=== PATIENT | female | born 1945 | race Caucasian/White ===

== ENCOUNTER 2019-07-14 10:51 | Outpatient (CLI) | payer MEDICARE, SELFPAY ==
[2019-07-14 11:41] LABS: Basophils % 0.6 %; Eosinophils # 0.1 10^3/uL (0.0-0.8); Eosinophils % 2.5 %; Hematocrit 44.4 % (37.0-47.0); Hemoglobin 13.9 g/dL (11.5-15.3); Lymphocytes # 1.2 10^3/uL (0.8-4.8); Lymphocytes % 23.5 %; Mean Corpuscular HGB Conc 31.3 g/dL (30.0-36.0); Mean Corpuscular Hemoglobin 29.4 pg (28.0-34.0); Mean Corpuscular Volume 94.1 fL (81-99); Mean Platelet Volume 10.2 fL (7.4-10.4); Monocytes # 0.5 10^3/uL (0.2-0.9); Monocytes % 9.9 %; Neutrophils # 3.3 10^3/uL (1.8-7.7); Neutrophils % 63.1 %; Nucleated Red Blood Cells % 0 %; Platelet Count 197 10^3/cmm (130-400); Red Blood Count 4.72 10^6/uL (4.1-5.3); Red Cell Distribution Width 13.9 % (12.1-15.1); White Blood Count 5.2 10^3/uL (4.0-10.0)
[2019-07-14 12:50] LABS: Alanine Aminotransferase 13 U/L (0-33); Albumin Level 3.8 g/dL (3.5-5.2); Alkaline Phosphatase 83 IU/L (35-105); Aspartate Amino Transferase 19 U/L (0-32); Blood Urea Nitrogen 15 mg/dL (8-23); Calcium 9.9 mg/dL (8.5-10.5); Carbon Dioxide 28 mmol/L (22-29); Chloride 102 mmol/L (98-107); Globulin 3.3 g/dL (1.3-4.6); Glucose 107 mg/dL (65-115); Sodium 141 mmol/L (136-145); Total Bilirubin 0.6 mg/dL (0.15-1.2); Total Protein 7.1 g/dL (6.6-8.7)
--- NOTE | 2019-07-15 16:12 | ONC FU_ITS ---
Dr. Sharma Patient Follow-Up Note Patient: Lorrie Villarreal Unit #: [id number]: 1945 Dicatated By: Jason Sharma M.D.Date of Visit:Jul 14, 2019 Onc Med Follow-up/Prog Note Chief Complaint: Breast cancer. 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 She had presented in October 2014 with an abnormal screening mammogram. The findings included a new spiculated appearing mass in the superior middle third of the left breast. It measured 9 mm. Also noted in the left anterior third breast were new asymmetric calcifications. Additional studies were recommended. She then had further evaluation through [facility] in [place]. This led to needle biopsies of 2 lesions in the left breast, both at the 2:30 position. Two biopsies at 2:30-6 showed high-grade ductal carcinoma in situ, cribriform growth pattern, with central comedo-type necrosis. A third biopsy at 2:30-9 showed micropapillary type invasive carcinoma which was ER positive at 90% and NC positive at 60%. Ki-67 was positive in 25% of cells. It was negative for overexpression of HER-2/rere with amplification ratio of 0.8 and mean HER2 signal 3.4. She had had a second opinion evaluation at the [facility]. She opted to proceed with mastectomy/reconstruction. On 01/11/2015 she underwent left total mastectomy, sentinel left axillary lymph node biopsy, and axillary lymph node dissection. That procedure was followed by placement of a tissue human services professional. Pathology on the mastectomy showed grade 3 micropapillary invasive carcinoma measuring 10 mm. The closest margin was 5 mm. Also present was an area of ductal carcinoma in situ, nuclear grade 3, solid and comedo types. The greatest extent of DCIS was at least 17 mm. The closest margin was 5 mm. There was involvement in 1 of 2 sentinel left axillary lymph nodes, with the maximum dimension of metastatic focus measuring 7 mm. The axillary lymph node dissection showed involvement in an additional 1 of 31 lymph nodes, maximum dimension 7 mm. I had seen her initially on 02/02/2015 for consideration of systemic adjuvant therapy. We discussed the available options including chemotherapy and hormonal therapy. I did opt to have her evaluated with Oncotype DX. It showed a recurrence score of 21, which was in the low intermediate risk category with estimated 5 year recurrence risk of 13% in patients who received adjuvant therapy with tamoxifen alone. In that group, there was no improvement with addition of chemotherapy, but those results were based on relatively small number of patients, and a benefit with chemotherapy was not excluded. As such, we did opt to proceed with adjuvant chemotherapy with 4 cycles of Taxotere/cyclophosphamide. She completed adjuvant chemotherapy on 05/07/2015. Adjuvant hormonal therapy with anatrozole 1 mg daily began in May 2015. In July 2015 she underwent reconstructive surgery at the [facility]. She had no complications with the procedure. A surveillance right breast ultrasound on 10/15/2016 showed a 1.1 x 0.7 x 0.7 cm complex irregular mass located in the 9 to 10:00 position, approximately 2 cm from the nipple. It was read as BI-RADS 4, suspicious. Biopsy was recommended. I had seen her for followup on 11/11/2016. She then underwent ultrasound directed needle biopsy of the suspicious area. Pathology showed fibrocystic changes with no malignant tumor or significant atypia identified. Her other medical illnesses have been limited to hiatal hernia/GERD and some mild degenerative arthritis. She smoked for a period of 3 or 4 years, up to 2 packs of cigarettes daily. She quit smoking in 1962. She does not drink alcohol. Baseline DEXA scan on 11/06/2014 was normal, and repeat DEXA scan on 11/10/2016 showed normal bone mineralization. INTERIM HISTORY: Her surveillance right digital mammogram on 10/22/2017 showed persistent lesion at the 2:00 position, 2 cm from the nipple. It was noted to have decreased slightly in size. Six-month interval follow-up was recommended. Her repeat diagnostic mammogram/ultrasound on 04/29/2018 was BI-RADS category 2, benign. One-year follow-up was recommended. She has continued adjuvant hormonal therapy with anastrozole. She is seen for a scheduled visit. She has been feeling good generally, though she typically is not as active during the winter. Her ECOG score is 0. She has good appetite. She has no fever, night sweats, or hot flashes. She had developed some muscle soreness in the left side of her back, which she had attributed to the implant. It lasted for 3 to 4 weeks. It has now resolved. She also noticed a little soreness in her throat, which she also thought was a muscle issue, and that has also resolved. She has no shortness of breath, cough, or chest pain. She recurrently has no GI complaints. Her reflux symptoms have improved with dietary measures. She has no complaints. She does have some arthritis, mainly in the right hip. She has some numbness/tingling in her hands and feet. Medications: Anastrozole 1 (1 mg) Tablet Oral daily, Biotin 1 Tablet Oral daily, [facility] Melatonin 1 (5 mg) Capsule Oral at bedtime PRN, EQ Ibuprofen 1 (200 mg) Tablet Oral PRN, 1 Tablet Oral daily, reishi 1 Capsule daily Allergies: Penicillin V Potassium Review of Systems: Constitutional - Her energy has been good, though she does tend to be less active during the winter. She has good appetite. She has no fever, night sweats, or hot flashes. ECOG score is 0, ENMT - She has had a runny nose with some postnasal drip for the last couple of days. No mouth sores. No sore throat or difficulty swallowing, Hematologic/Lymphatic - She bruises easily, Respiratory - No shortness of breath. No cough. No pleuritic pain or hemoptysis, Cardiovascular - No angina pain. No palpitations, Gastrointestinal - No nausea or vomiting. No heartburn or acid reflux. No diarrhea or constipation. No blood in the stool or black stools, Genitourinary (F) - No dysuria or hematuria. No urinary frequency. No urgency or incontinence, Musculoskeletal - She had some soreness in the left side of her back for 3 to 4 weeks. She associated with her implant. It has resolved. She otherwise just has minor arthritis in her right hip, Integumentary - No skin complications, Neurologic - No headache or dizziness. She has numbness and tingling in her hands and feet, Psychiatric - No anxiety or depression. She is still having some trouble sleeping at night, but it is getting better. Vital Signs: Performed on Jul 14, 2019 12:31 Height - 64.00 in Weight - 202.4 lbs (HIGH) BSA - 1.97 sq.m BMI - 34.74 (HIGH) Temperature - 98.0 F (LOW) Pulse - 89 /min Respiration - 20 /min BP - 123/75 mm(hg) O2 Sat - 97 % Pain - 0 Physical Examination: Constitutional - She looks good generally, Eyes - Sclerae nonicteric. Conjunctivae clear, ENMT - No lesions noted in the oral cavity, Hematologic/Lymphatic - No cervical or clavicular adenopathy, Respiratory - Lungs are clear with good air movement bilaterally, Cardiovascular - Heart rhythm is regular. There is a II/ systolic murmur at the base. There is no gallop or rub noted, Breasts - The right breast shows no mass. There are no lesions noted in the left chest wall/reconstruction. There is no axillary adenopathy, Abdomen - Soft. Liver and spleen are not enlarged. There is no abdominal mass or ascites noted and there is no inguinal adenopathy, Extremities - No edema. Pedal pulses are palpable bilaterally, Neurologic - No focal neurologic deficits noted. Lab/Imaging: Test performed on Jul 14, 2019 11:00 Sodium 141 mmol/L Potassium 4.0 mmol/L Chloride 102 mmol/L CO2 28 mmol/L Anion Gap 15.0 BUN 15 mg/dL Creatinine 0.8 mg/dL Cr Clearance (Est) 85.5900 mL/min Glucose 107 mg/dL Calcium 9.9 mg/dL Protein, Total 7.1 g/dL Albumin 3.8 g/dL Globulin 3.3 g/dL Bilirubin, Total 0.6 mg/dL ALT (SGPT) 13 U/L AST (SGOT) 19 U/L Alkaline Phosphatase 83 IU/L WBC 5.2 10 3/uL RBC 4.72 10 6/uL HGB 13.9 g/dL HCT 44.4 % MCV 94.1 fL MCH 29.4 pg MCHC 31.3 g/dL RDW 13.9 % Platelet Count 197 10 3/cmm MPV 10.2 fL Neutrophils 3.3 10 3/uL Lymphocytes 1.2 10 3/uL Monocytes 0.5 10 3/uL Eosinophils 0.1 10 3/uL Basophils 0.0 10 3/uL Neutrophil % 63.1 % Lymphocyte % 23.5 % Monocyte % 9.9 % Eosinophil % 2.5 % Basophils % 0.6 % Impression: 1. 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 Pathology also showed ductal carcinoma in situ of the left breast. She has had additional evaluation with Oncotype DX, which showed a recurrence score of 21, low intermediate risk range. 2. Her treatment has included left total mastectomy, sentinel left axillary lymph node biopsy, left axillary lymph node dissection, and placement of tissue human services professional on 01/11/2015. 3. She was given adjuvant chemotherapy with 4 cycles of Taxotere/cyclophosphamide, completed in April 2015. Toxicities included fatigue, myelosuppression, and mild neuropathy. Overall, she tolerated chemotherapy pretty well. 4. In May 2015 she started adjuvant hormonal therapy with anastrozole 1 mg daily. Her other medical illnesses include: 5. Hiatal hernia/GERD. 6. Mild degenerative arthritis. An ultrasound of the right breast in September 2016 showed a suspicious nodule in the 9 to 10:00 position. Ultrasound directed biopsy on 11/28/2016 showed fibrocystic changes with no malignant tumor or significant atypia identified. She has continued adjuvant hormonal therapy with anastrozole. Her repeat diagnostic mammogram/ultrasound in April 2018 was BI-RADS category 2, benign. One-year follow-up was recommended. During followup she has been doing well clinically. She has tolerated the anastrozole with no adverse effects. Thus far there has been no evidence of recurrence of her breast cancer. Plan: She continues adjuvant hormonal therapy with anastrozole 1 mg daily. I will just plan to see her again in 1 year. Signed By: Jason Sharma M.D. <<Signature on File>>
== END 2019-07-14 10:52 | disposition home or self-care (01) ==
LOC: ONCMED 10:53
PROVIDERS: Family Provider Family Medicine; PCP Family Medicine; Visit Provider Internal Medicine Medical Oncology
DX: C50.412 Malignant neoplasm of upper-outer quadrant of left female breast (principal); C77.3 Secondary and unspecified malignant neoplasm of axilla and upper limb lymph nodes; Z17.0 Estrogen receptor positive status [ER+]; K44.9 Diaphragmatic hernia without obstruction or gangrene; K21.9 Gastro-esophageal reflux disease without esophagitis; M19.90 Unspecified osteoarthritis, unspecified site; Z79.811 Long term (current) use of aromatase inhibitors; Z92.21 Personal history of antineoplastic chemotherapy; Z87.891 Personal history of nicotine dependence; Z90.12 Acquired absence of left breast and nipple
CPT/HCPCS: 80053; 85025; 99214

== ENCOUNTER 2019-09-19 13:23 | Outpatient (CLI) | payer MEDICARE, SELFPAY ==
--- NOTE | 2019-09-19 13:39 | XR_ITS ---
WS: [id number] CHEST 2 VIEWS HISTORY: history of breast cancer COMPARISON: 02/19/2015 Lungs: Clear with no abnormality. No pleural effusion or pneumothorax. Cardiac size: Normal. Mediastinum/Aorta: Mild atherosclerosis aorta. Mild ectasia aorta. Bones: Slight increase in thoracic kyphosis. Prior LEFT axillary vinayak dissection. XR/XR chest 2V* [id number] IMPRESSION: 1. Mild chronic emphysema with no pneumonia. 2. Mild atherosclerosis aorta and prior LEFT axillary vinayak dissection.
--- NOTE | 2019-09-19 13:39 | XR_ITS ---
WS: [id number] THORACIC SPINE TECHNIQUE: AP and lateral views are performed. HISTORY: back pain COMPARISON: None available. Moderate increase in thoracic kyphosis. Endplate osteophytes and mild disc space narrowing throughout the thoracic spine. No fractures. There is very slight lucency and increase in size of the RIGHT T10 pedicle. With history of breast cancer further imaging should be obtained. Calcification in the thoracic aorta. XR/XR thoracic spine 2V [id number] IMPRESSION: 1. Increase in thoracic kyphosis with multilevel moderate spondylosis. 2. Lucency and slight increase in size of the RIGHT T10 pedicle. Metastatic di sease needs to be excluded. Recommend MRI with contrast for further evaluation. If patient is unable to undergo an MRI noncontrast CT evaluation would BE help ful. 3. Atherosclerosis aorta.
== END 2019-09-19 13:24 | disposition home or self-care (01) ==
PROVIDERS: Family Provider Family Medicine; PCP Family Medicine; Visit Provider Family Medicine
DX: M54.9 Dorsalgia, unspecified (principal); Z85.3 Personal history of malignant neoplasm of breast; M47.894 Other spondylosis, thoracic region; I70.0 Atherosclerosis of aorta; J43.9 Emphysema, unspecified
CPT/HCPCS: 71046; 72070

== ENCOUNTER 2019-10-03 09:16 | Outpatient (CLI) | payer MEDICARE, SELFPAY ==
--- NOTE | 2019-10-03 09:30 | MR_ITS ---
WS: [id number] MRI THORACIC SPINE WITH CONTRAST TECHNIQUE: Sagittal T1, T2 and STIR imaging. Axial T2 imaging. Post gadolinium imaging was obtained. CLINICAL INFORMATION: lesion T10 pedicle COMPARISON: Radiograph September 19, 2019 FINDINGS: No evidence of thoracic metastatic disease. Mild thoracic kyphosis. No acute compression fractures. M oderate spondylitic changes. No lesions in the T10 vertebral body. Cord signal is normal. No high-gra de central canal stenosis. No abnormal gadolinium enhancement. A few small disc protrusions more prominent at T7-T8 and T8-9 with slight effacement of ventral theca l sac. Small central protrusion at T10-11. Broad-based central disc protrusion T12-L1 with mild centr al canal stenosis. Moderate facet arthropathy. T2 hyperintense left thyroid lesion measuring 7 mm. Normal caliber thoracic aorta. Moderate esophagea l hiatal hernia. Adrenal glands appear normal. Exophytic left renal lesion measuring 12 mm with susce ptibility artifact likely represents hemorrhagic cyst. MR/MR thoracic spine wo/w [id number] IMPRESSION: 1. Moderate thoracic kyphosis. No acute compression fractures. 2. No evidence of metastatic disease. T10 vertebral body appears normal. 3. Cord signal is normal. 4. A few small disc protrusions more prominent at T12-L1 with mild central can al stenosis.
== END 2019-10-03 09:17 | disposition home or self-care (01) ==
PROVIDERS: PCP Family Medicine; Visit Provider Family Medicine
DX: S24.113A Complete lesion at T7-T10 level of thoracic spinal cord, initial encounter (principal); X58.XXXA Exposure to other specified factors, initial encounter; M40.294 Other kyphosis, thoracic region; M51.25 Other intervertebral disc displacement, thoracolumbar region; M48.04 Spinal stenosis, thoracic region
CPT/HCPCS: 72157; A9579

== ENCOUNTER 2020-05-07 10:37 | Outpatient (CLI) | payer MEDICARE, SELFPAY ==
--- NOTE | 2020-05-07 10:46 | MM_ITS ---
WS: [id number] RIGHT DIGITAL MAMMOGRAPHY WITH CAD CLINICAL INFORMATION: HX OF BREAST CA. PAIN AND SORENESS RIGHT BREAST. RIGHT BREAST REDUCTION. LEFT B REAST MASTECTOMY COMPARISON: TECHNIQUE: 3 views of the right breast were obtained. FINDINGS: Scattered fibroglandular densities of the right breast. Dystrophic calcifications right breast. Biops y markers upper outer right breast. No suspicious focal mass, asymmetry, calcifications, or architectural distortion. No evidence of grace gnancy. MM/[place] [id number] IMPRESSION: BI-RADS: 2-Benign FOLLOW UP: 1 Year Follow-up Recommend return to annual diagnostic mammography.
== END 2020-05-07 10:38 | disposition home or self-care (01) ==
PROVIDERS: PCP Family Medicine; Visit Provider Internal Medicine Medical Oncology
DX: Z85.3 Personal history of malignant neoplasm of breast (principal); N64.4 Mastodynia; Z90.12 Acquired absence of left breast and nipple
CPT/HCPCS: 77065

== ENCOUNTER 2020-08-13 14:00 | Outpatient (CLI) | payer MEDICARE, SELFPAY ==
[2020-08-13 14:37] LABS: Basophils % 0.8 %; Eosinophils # 0.1 10^3/uL (0.0-0.8); Eosinophils % 1.5 %; Hematocrit 45.4 % (37.0-47.0); Hemoglobin 14.6 g/dL (11.5-15.3); Lymphocytes # 1.7 10^3/uL (0.8-4.8); Mean Corpuscular HGB Conc 32.2 g/dL (30.0-36.0); Mean Corpuscular Volume 93.2 fL (81-99); Mean Platelet Volume 10.7 fL (7.4-10.4); Monocytes # 0.6 10^3/uL (0.2-0.9); Monocytes % 11.8 %; Neutrophils # 2.86 10^3/uL (1.8-7.7); Neutrophils % 53.7 %; Nucleated Red Blood Cells % 0 %; Platelet Count 215 10^3/cmm (130-400); Red Blood Count 4.87 10^6/uL (4.1-5.3); Red Cell Distribution Width 13.8 % (12.1-15.1); White Blood Count 5.3 10^3/uL (4.0-10.0)
[2020-08-13 15:19] LABS: Alanine Aminotransferase 13 U/L (0-33); Albumin Level 4.1 g/dL (3.5-5.2); Alkaline Phosphatase 87 IU/L (35-105); Aspartate Amino Transferase 19 U/L (0-32); Blood Urea Nitrogen 13 mg/dL (8-23); Calcium 9.6 mg/dL (8.5-10.5); Carbon Dioxide 29 mmol/L (22-29); Chloride 101 mmol/L (98-107); Globulin 2.7 g/dL (1.3-4.6); Glucose 83 mg/dL (65-115); Osmolality Calculated 293 mOsm/kg (285-295); Sodium 142 mmol/L (136-145); Total Bilirubin 0.3 mg/dL (0.15-1.2); Total Protein 6.8 g/dL (6.6-8.7)
--- NOTE | 2020-08-14 08:38 | ONC FU_ITS ---
Dr. Sharma Patient Follow-Up Note Patient: Lorrie Villarreal Unit #: [id number]: 1945 Dicatated By: Jason Sharma M.D.Date of Visit:Aug 13, 2020 Onc Med Follow-up/Prog Note Chief Complaint: Breast cancer. 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 She had presented in October 2014 with an abnormal screening mammogram. The findings included a new spiculated appearing mass in the superior middle third of the left breast. It measured 9 mm. Also noted in the left anterior third breast were new asymmetric calcifications. Additional studies were recommended. She then had further evaluation through [facility] in [place]. This led to needle biopsies of 2 lesions in the left breast, both at the 2:30 position. Two biopsies at 2:30-6 showed high-grade ductal carcinoma in situ, cribriform growth pattern, with central comedo-type necrosis. A third biopsy at 2:30-9 showed micropapillary type invasive carcinoma which was ER positive at 90% and IA positive at 60%. Ki-67 was positive in 25% of cells. It was negative for overexpression of HER-2/rere with amplification ratio of 0.8 and mean HER2 signal 3.4. She had had a second opinion evaluation at the [facility]. She opted to proceed with mastectomy/reconstruction. On 01/11/2015 she underwent left total mastectomy, sentinel left axillary lymph node biopsy, and axillary lymph node dissection. That procedure was followed by placement of a tissue senior it architect. Pathology on the mastectomy showed grade 3 micropapillary invasive carcinoma measuring 10 mm. The closest margin was 5 mm. Also present was an area of ductal carcinoma in situ, nuclear grade 3, solid and comedo types. The greatest extent of DCIS was at least 17 mm. The closest margin was 5 mm. There was involvement in 1 of 2 sentinel left axillary lymph nodes, with the maximum dimension of metastatic focus measuring 7 mm. The axillary lymph node dissection showed involvement in an additional 1 of 31 lymph nodes, maximum dimension 7 mm. I had seen her initially on 02/02/2015 for consideration of systemic adjuvant therapy. We discussed the available options including chemotherapy and hormonal therapy. I did opt to have her evaluated with Oncotype DX. It showed a recurrence score of 21, which was in the low intermediate risk category with estimated 5 year recurrence risk of 13% in patients who received adjuvant therapy with tamoxifen alone. In that group, there was no improvement with addition of chemotherapy, but those results were based on relatively small number of patients, and a benefit with chemotherapy was not excluded. As such, we did opt to proceed with adjuvant chemotherapy with 4 cycles of Taxotere/cyclophosphamide. She completed adjuvant chemotherapy on 05/07/2015. Adjuvant hormonal therapy with anatrozole 1 mg daily began in May 2015. In July 2015 she underwent reconstructive surgery at the [facility]. She had no complications with the procedure. A surveillance right breast ultrasound on 10/15/2016 showed a 1.1 x 0.7 x 0.7 cm complex irregular mass located in the 9 to 10:00 position, approximately 2 cm from the nipple. It was read as BI-RADS 4, suspicious. Biopsy was recommended. I had seen her for followup on 11/11/2016. She then underwent ultrasound directed needle biopsy of the suspicious area. Pathology showed fibrocystic changes with no malignant tumor or significant atypia identified. She continued her adjuvant hormonal therapy with anastrozole 1 mg daily. Her other medical illnesses have been limited to hiatal hernia/GERD and some mild degenerative arthritis. She smoked for a period of 3 or 4 years, up to 2 packs of cigarettes daily. She quit smoking in 1961. She does not drink alcohol. Baseline DEXA scan on 11/06/2014 was normal, and repeat DEXA scan on 11/10/2016 showed normal bone mineralization. Her repeat DEXA scan on 11/22/2018 continued to show normal bone mineralization with T score 1.9 in the lumbar spine, 1.1 in the left femoral neck, and 1.4 in the right femoral neck. INTERIM HISTORY: She is seen for a scheduled visit. She has been feeling pretty good generally. For about 6 weeks she had been having persistent pain in her left shoulder blade area. In September she had a evaluation with x-rays of the thoracic spine and subsequently thoracic spine MRI. There was no evidence of metastatic disease. The pain had subsequently resolved. Her energy has been pretty good, though she has noticed that she is slowing down somewhat. Her ECOG score is 1. She has good appetite and she has gained weight. She does not have fever, night sweats, or hot flashes. She has a little soreness in her mouth associated with her dentures. She is a little bit of cough in the morning. She does not complain of shortness of breath or chest pain. She has problems with gas in her upper stomach. She has no other GI or complaints. She has some mild joint pain, attributable to age. She does not complain of headache or dizziness. 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 Medications: Anastrozole 1 (1 mg) Tablet Oral daily, Biotin 1 Tablet Oral daily, [facility] Melatonin 1 (5 mg) Capsule Oral at bedtime PRN, EQ Ibuprofen 1 (200 mg) Tablet Oral PRN, 1 Tablet Oral daily, reishi 1 Capsule daily Allergies: Penicillin V Potassium Vital Signs: Performed on Aug 13, 2020 15:35 Height - 64.00 in Weight - 203.0 lbs (HIGH) BSA - 1.97 sq.m BMI - 34.85 (HIGH) Temperature - 98.2 F (LOW) Pulse - 63 /min Respiration - 19 /min BP - 127/74 mm(hg) O2 Sat - 95 % (LOW) Pain - 0 Physical Examination: Constitutional - She looks good generally, Eyes - Sclerae nonicteric. Conjunctivae clear, ENMT - No lesions noted in the oral cavity, Hematologic/Lymphatic - No cervical or clavicular adenopathy, Respiratory - Lungs are clear with good air movement bilaterally, Cardiovascular - Heart rhythm is regular. There is a II/ systolic murmur at the base. There is no gallop or rub noted, Breasts - The right breast shows no mass. There are no lesions noted in the left chest wall/reconstruction. There is no axillary adenopathy, Abdomen - Soft. Liver and spleen are not enlarged. There is no abdominal mass or ascites noted and there is no inguinal adenopathy, Extremities - No edema, Neurologic - No focal neurologic deficits noted. Lab/Imaging: Test performed on Aug 13, 2020 14:10 Sodium 142 mmol/L Potassium 4.0 mmol/L Chloride 101 mmol/L CO2 29 mmol/L Anion Gap 16.0 BUN 13 mg/dL Creatinine 0.8 mg/dL Cr Clearance (Est) 84.2600 mL/min Glucose 83 mg/dL Osmolality - Calculated 293 mOsm/kg Calcium 9.6 mg/dL Protein, Total 6.8 g/dL Albumin 4.1 g/dL Globulin 2.7 g/dL Bilirubin, Total 0.3 mg/dL ALT (SGPT) 13 U/L AST (SGOT) 19 U/L Alkaline Phosphatase 87 IU/L WBC 5.3 10 3/uL RBC 4.87 10 6/uL HGB 14.6 g/dL HCT 45.4 % MCV 93.2 fL MCH 30.0 pg MCHC 32.2 g/dL RDW 13.8 % Platelet Count 215 10 3/cmm MPV 10.7 fL Neutrophils 2.86 10 3/uL Lymphocytes 1.7 10 3/uL Monocytes 0.6 10 3/uL Eosinophils 0.1 10 3/uL Basophils 0.0 10 3/uL Neutrophil % 53.7 % Lymphocyte % 32.0 % Monocyte % 11.8 % Eosinophil % 1.5 % Basophils % 0.8 % NRBC % 0 % Problem List: 1. Grade 3 invasive micropapillary carcinoma of the left breast, stage IIA (T1b, pN1a, M0), ER/IA positive and HER-2/rere negative. Pathology also showed ductal carcinoma in situ of the left breast. She has had additional evaluation with Oncotype DX, which showed a recurrence score of 21, low intermediate risk range. 2. Hiatal hernia/GERD. 3. Mild degenerative arthritis. Problems Addressed with this Encounter and Plan: 1. 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 Pathology also showed ductal carcinoma in situ of the left breast. She has had additional evaluation with Oncotype DX, which showed a recurrence score of 21, low intermediate risk range. Her treatment has included left total mastectomy, sentinel left axillary lymph node biopsy, left axillary lymph node dissection, and placement of tissue senior it architect on 01/11/2015. She was given adjuvant chemotherapy with 4 cycles of Taxotere/cyclophosphamide, completed in April 2015. She began adjuvant hormonal therapy with anastrozole 1 mg daily in May 2015. An ultrasound of the right breast in September 2016 showed a suspicious nodule in the 9 to 10:00 position. Ultrasound directed biopsy on 11/28/2016 showed fibrocystic changes with no malignant tumor or significant atypia identified. She continued adjuvant hormonal therapy with anastrozole. During followup she has tolerated the anastrozole with no adverse effects. Overall she has been doing very well clinically with no evidence of recurrence of her breast cancer. She has now completed 5 years of adjuvant hormonal therapy. We discussed the possibility of stopping treatment now versus continuing for 10 years. With axillary lymph node involvement, she is at higher risk for recurrence, and as long as she is able to tolerate it with no significant adverse effects, I am recommending that she continue treatment with anastrozole 1 mg daily. I will just plan to see her again in one year. 2. She has had normal bone mineral density by DEXA scan. Due to her treatment with an aromatase inhibitor, she is at increased risk for osteoporosis, and she will require ongoing monitoring. She will be due for her 2-year interval DEXA scan in November, and that will be scheduled now. Signed By: Jason Sharma M.D. <<Signature on File>>
== END 2020-08-13 14:01 | disposition home or self-care (01) ==
LOC: ONCMED 14:05
PROVIDERS: PCP Family Medicine; Visit Provider Internal Medicine Medical Oncology
DX: C50.812 Malignant neoplasm of overlapping sites of left female breast (principal); C77.3 Secondary and unspecified malignant neoplasm of axilla and upper limb lymph nodes; Z17.0 Estrogen receptor positive status [ER+]; Z90.12 Acquired absence of left breast and nipple; Z79.811 Long term (current) use of aromatase inhibitors
CPT/HCPCS: 80053; 85025; 99214

== ENCOUNTER 2020-12-27 14:49 | Outpatient (CLI) | payer MEDICARE, SELFPAY ==
--- NOTE | 2020-12-27 | XR_ITS ---
WS: [id number] DEXA (DUAL ENERGY X-RAY ABSORPTIOMETRY) Bone mineral density was performed using a Walk-in Appointment Scheduler machine. HISTORY: HISTORY OF HIGH RISK MEDICATION USE FOR OSTEOPOROSIS COMPARISON: 11/22/2018 Lumbar spine BMD (L1-L4): 1.400 g/cm2 T score: 1.8 Z score: 2.9 Total hip BMD: Left: 1.136 g/cm2. T score: 1.0 Z score: 2.4 Right: 1.154 g/cm2. T score: 1.2 Z score: 2.5 10 year probability of a major osteoporotic fracture is 7%. Compared to the prior study from 11/22/2018. Lumbar spine bone mineral density has decreased by 0.7%. Bilateral hips bone mineral density has decreased by 1.7%. XR/XR DEXA axial skeleton* [id number] IMPRESSION: NORMAL BONE MINERAL DENSITY based upon the WHO classification for females. No s ignificant change in bone mineral density since the prior exam.
== END 2020-12-27 14:50 | disposition home or self-care (01) ==
PROVIDERS: PCP Family Medicine; Visit Provider Internal Medicine Medical Oncology
DX: Z78.0 Asymptomatic menopausal state (principal); Z79.899 Other long term (current) drug therapy
CPT/HCPCS: 77080

== ENCOUNTER 2021-04-24 11:08 | Outpatient (CLI) | payer MEDICARE, SELFPAY ==
--- NOTE | 2021-04-24 11:19 | MM_ITS ---
WS: [id number] RIGHT DIGITAL MAMMOGRAPHY WITH CAD CLINICAL INFORMATION: HX OF BREAST CA;LT MASTECTOMY HISTORY: COMPARISON: May 07, 2020 TECHNIQUE: 3 views of the right breast were obtained. FINDINGS: History of right breast reduction Scattered fibroglandular densities of the right breast. Stable dystrophic calcifications upper outer right breast. No suspicious focal mass, asymmetry, calcifications, or architectural distortion. No evidence of grace gnancy. MM/[place] [id number] IMPRESSION: BI-RADS: 2-Benign FOLLOW UP: 1 Year Follow-up Recommend return to annual diagnostic mammography.
== END 2021-04-24 11:09 | disposition home or self-care (01) ==
LOC: RADSHAW 11:13
PROVIDERS: PCP Family Medicine; Visit Provider Internal Medicine Medical Oncology
DX: Z85.3 Personal history of malignant neoplasm of breast (principal); Z90.12 Acquired absence of left breast and nipple
CPT/HCPCS: 77065

== ENCOUNTER 2021-08-13 14:20 | Outpatient (CLI) | payer MEDICARE, SELFPAY ==
--- NOTE | 2021-08-14 06:48 | ONC FU_ITS ---
Dr. Sharma Patient Follow-Up Note Patient: Lorrie Villarreal Unit #: [id number]: 1945 Dicatated By: Jason Sharma M.D.Date of Visit:Aug 13, 2021 Onc Med Follow-up/Prog Note Chief Complaint: Breast cancer. 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 She had presented in October 2014 with an abnormal screening mammogram. The findings included a new spiculated appearing mass in the superior middle third of the left breast. It measured 9 mm. Also noted in the left anterior third breast were new asymmetric calcifications. Additional studies were recommended. She then had further evaluation through [facility] in [place]. This led to needle biopsies of 2 lesions in the left breast, both at the 2:30 position. Two biopsies at 2:30-6 showed high-grade ductal carcinoma in situ, cribriform growth pattern, with central comedo-type necrosis. A third biopsy at 2:30-9 showed micropapillary type invasive carcinoma which was ER positive at 90% and MT positive at 60%. Ki-67 was positive in 25% of cells. It was negative for overexpression of HER-2/rere with amplification ratio of 0.8 and mean HER2 signal 3.4. She had had a second opinion evaluation at the [facility]. She opted to proceed with mastectomy/reconstruction. On 01/11/2015 she underwent left total mastectomy, sentinel left axillary lymph node biopsy, and axillary lymph node dissection. That procedure was followed by placement of a tissue post production assistant. Pathology on the mastectomy showed grade 3 micropapillary invasive carcinoma measuring 10 mm. The closest margin was 5 mm. Also present was an area of ductal carcinoma in situ, nuclear grade 3, solid and comedo types. The greatest extent of DCIS was at least 17 mm. The closest margin was 5 mm. There was involvement in 1 of 2 sentinel left axillary lymph nodes, with the maximum dimension of metastatic focus measuring 7 mm. The axillary lymph node dissection showed involvement in an additional 1 of 31 lymph nodes, maximum dimension 7 mm. I had seen her initially on 02/02/2015 for consideration of systemic adjuvant therapy. We discussed the available options including chemotherapy and hormonal therapy. I did opt to have her evaluated with Oncotype DX. It showed a recurrence score of 21, which was in the low intermediate risk category with estimated 5 year recurrence risk of 13% in patients who received adjuvant therapy with tamoxifen alone. In that group, there was no improvement with addition of chemotherapy, but those results were based on relatively small number of patients, and a benefit with chemotherapy was not excluded. As such, we did opt to proceed with adjuvant chemotherapy with 4 cycles of Taxotere/cyclophosphamide. She completed adjuvant chemotherapy on 05/07/2015. Adjuvant hormonal therapy with anatrozole 1 mg daily began in May 2015. In July 2015 she underwent reconstructive surgery at the [facility]. She had no complications with the procedure. A surveillance right breast ultrasound on 10/15/2016 showed a 1.1 x 0.7 x 0.7 cm complex irregular mass located in the 9 to 10:00 position, approximately 2 cm from the nipple. It was read as BI-RADS 4, suspicious. Biopsy was recommended. I had seen her for followup on 11/11/2016. She then underwent ultrasound directed needle biopsy of the suspicious area. Pathology showed fibrocystic changes with no malignant tumor or significant atypia identified. She continued her adjuvant hormonal therapy with anastrozole 1 mg daily. As of her follow-up visit in July 2020 she stopped the anastrozole, having completed 5 years of adjuvant therapy. Her other medical illnesses have been limited to hiatal hernia/GERD and some mild degenerative arthritis. She smoked for a period of 3 or 4 years, up to 2 packs of cigarettes daily. She quit smoking in 1961. She does not drink alcohol. Baseline DEXA scan on 11/06/2014 was normal, and repeat DEXA scan on 11/10/2016 showed normal bone mineralization. Her repeat DEXA scan on 11/22/2018 continued to show normal bone mineralization with T score 1.9 in the lumbar spine, 1.1 in the left femoral neck, and 1.4 in the right femoral neck. She is seen for a follow-up visit. She says she had COVID-19 virus infection last year, and she was pretty sick for at least a month. She had a weight loss of 14 pounds with that illness, but she did have a good recovery. She does not have quite as much energy as she used to, but she still has normal activity. ECOG score is 0. Her appetite is good. She has regained most of the weight. She does not have fever, night sweats, or hot flashes. She has not had sore mouth or throat. She does not complain of cough, and she has not been having shortness of breath or chest pain. She has some acid reflux, but that has been going on for years. She has chronic constipation, also unchanged. She has no complaints. She has no significant joint or bone pain. She does not complain of headache. She has very occasional episodes of dizziness. 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 Medications: Anastrozole 1 (1 mg) Tablet Oral daily, Biotin 1 Tablet Oral daily, [facility] Melatonin 1 (5 mg) Capsule Oral at bedtime PRN, EQ Ibuprofen 1 (200 mg) Tablet Oral PRN, 1 Tablet Oral daily, reishi 1 Capsule daily Allergies: Penicillin V Potassium Vital Signs: Performed on Aug 13, 2021 14:45 Height - 64.00 in Weight - 199.2 lbs (LOW) BSA - 1.95 sq.m BMI - 34.19 (HIGH) Temperature - 98.3 F (LOW) Pulse - 93 /min Respiration - 19 /min BP - 153/84 mm(hg) (HIGH) O2 Sat - 97 % Pain - 0 Fatigue - 0 Physical Examination: Constitutional - She looks good generally, Eyes - Sclerae nonicteric. Conjunctivae clear, ENMT - No lesions noted in the oral cavity, Hematologic/Lymphatic - No cervical or clavicular adenopathy, Respiratory - Lungs are clear with good air movement bilaterally, Cardiovascular - Heart rhythm is regular. There is a II/ systolic murmur at the base. There is no gallop or rub noted, Breasts - The right breast shows no mass. There are no lesions noted in the left chest wall/reconstruction. There is no axillary adenopathy, Abdomen - Soft. Liver and spleen are not enlarged. There is no abdominal mass or ascites noted and there is no inguinal adenopathy, Extremities - No edema, Neurologic - No focal neurologic deficits noted. Problem List: 1. Grade 3 invasive micropapillary carcinoma of the left breast, stage IIA (T1b, pN1a, M0), ER/MT positive and HER-2/rere negative. Pathology also showed ductal carcinoma in situ of the left breast. She has had additional evaluation with Oncotype DX, which showed a recurrence score of 21, low intermediate risk range. 2. Hiatal hernia/GERD. 3. Mild degenerative arthritis. Problems Addressed with this Encounter and Plan: 1. 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 Pathology also showed ductal carcinoma in situ of the left breast. She has had additional evaluation with Oncotype DX, which showed a recurrence score of 21, low intermediate risk range. Her treatment has included left total mastectomy, sentinel left axillary lymph node biopsy, left axillary lymph node dissection, and placement of tissue post production assistant on 01/11/2015. She was given adjuvant chemotherapy with 4 cycles of Taxotere/cyclophosphamide, completed in April 2015. She began adjuvant hormonal therapy with anastrozole 1 mg daily in May 2015. An ultrasound of the right breast in September 2016 showed a suspicious nodule in the 9 to 10:00 position. Ultrasound directed biopsy on 11/28/2016 showed fibrocystic changes with no malignant tumor or significant atypia identified. She continued adjuvant hormonal therapy with anastrozole. During followup she had tolerated the anastrozole with no adverse effects. She stopped it following her visit in July 2020, having completed 5 years of adjuvant therapy. Since then she has been doing well clinically, other than having had COVID-19 virus infection last year. Thus far there has been no evidence of recurrence of the breast cancer. She continues on expectant management. She is aware that she should continue surveillance with yearly diagnostic mammogram of the right breast. She will continue her regular follow-up with Dr. Casiano. I will see her again only as needed. Signed By: Jason Sharma M.D. <<Signature on File>>
== END 2021-08-13 14:21 | disposition home or self-care (01) ==
LOC: ONCMED 14:24
PROVIDERS: PCP Family Medicine; Visit Provider Internal Medicine Medical Oncology
DX: Z08 Encounter for follow-up examination after completed treatment for malignant neoplasm (principal); Z85.3 Personal history of malignant neoplasm of breast; K44.9 Diaphragmatic hernia without obstruction or gangrene; K21.9 Gastro-esophageal reflux disease without esophagitis; M19.90 Unspecified osteoarthritis, unspecified site; Z92.21 Personal history of antineoplastic chemotherapy
CPT/HCPCS: G0463

== ENCOUNTER → 2021-09-09 09:43 | Outpatient (BNVA) | payer MEDICARE, SELFPAY | PROVIDERS: PCP Family Medicine; Visit Provider Family Medicine | DX: Z00.00 Encounter for general adult medical examination without abnormal findings (principal); Z85.3 Personal history of malignant neoplasm of breast | CPT/HCPCS: 80053; 85025 ==

== ENCOUNTER → 2022-03-28 12:18 | Outpatient (BNVA) | payer MEDICARE, SELFPAY | PROVIDERS: PCP Family Medicine; Visit Provider Registered Nurse Neonatal Intensive Care | DX: N39.0 Urinary tract infection, site not specified (principal) | CPT/HCPCS: 81000; 87086 ==

== ENCOUNTER 2022-05-20 13:31 | Outpatient (CLI) | payer MEDICARE, SELFPAY ==
--- NOTE | 2022-05-20 13:41 | MM_ITS ---
WS: [id number] RIGHT 3D TOMOSYNTHESIS DIGITAL MAMMOGRAPHY WITH CAD CLINICAL INFORMATION: HX OF BREAST CA;LT MST HISTORY: LEFT mastectomy and RIGHT breast reduction. Tenderness RIGHT breast COMPARISON: 04/24/21 TECHNIQUE: 3 views of the right breast were obtained. FINDINGS: Scattered fibroglandular densities of the right breast. Biopsy marker RIGHT breast. Stable dystrophic calcifications outer RIGHT breast. No suspicious focal mass, asymmetry, calcifications, or architectural distortion. No evidence of grace gnancy. MM/[place] [id number] IMPRESSION: BI-RADS: 2-Benign FOLLOW UP: 1 Year Follow-up Recommend return to annual diagnostic mammography.
== END 2022-05-20 13:32 | disposition home or self-care (01) ==
LOC: RAD 13:34
PROVIDERS: PCP Family Medicine; Visit Provider Family Medicine
DX: Z85.3 Personal history of malignant neoplasm of breast (principal); Z90.12 Acquired absence of left breast and nipple
CPT/HCPCS: 77061; G0279

== ENCOUNTER 2022-07-30 15:22 | Emergency (ER) | payer MEDICARE, SELFPAY ==
[2022-07-30 15:28] VITALS: BP 156/95; PULSE 79; RESP 18; TEMP 36.8; O2SAT 98; BMI 30.4
[2022-07-30 15:32] VITALS: BP 135/77; RESP 16; O2SAT 97
--- NOTE | 2022-07-30 15:34 | ED_ITS ---
HPI - Skin/Abscess/Foreign Bdy General: Chief complaint: Skin/Abscess/Foreign Body Stated complaint: left leg abnormality Time Seen by Provider: 07/30/22 15:26 Source: patient Mode of arrival: ambulatory History of Present Illness: 77-year-old female who presents to the emergency room with complaints of a mildly tender red area in the medial aspect of the left lower leg. She is no trauma. She has not had any chest pain or shortness of breath that is tender to touch no other areas of concern. No chest pain no shortness of breath Onset (ago): hour(s) Location: LLE Severity: mild Quality: sharp Pain Consistency: intermittent Relieving factors: none Exacerbating factors: none Associated symptoms: Deny arthralgias, chills, cough, fever(s), itching, myalgias, nausea, rigidity, short of breath or vomiting Review of Systems Const: Denies: fever(s) or chills ENMT: Reports: throat pain, ear or mastoid pain, nasal discharge and nasal congestion Card: Denies: chest pain, palpitations, irregular heart rhythm, edema, swelling of feet/ankles, dyspnea on exertion or orthopnea Resp: Denies: dyspnea, productive cough or non-productive cough GI: Denies: nausea or vomiting Skin/Breast: Denies: rash or pruritus PFSH ED PFSH: Medical History History of breast cancer Social History Smoking and tobacco status: current every day smoker Alcohol intake: never Physical Exam Const: COMMON NORMALS: no acute distress GENERAL APPEARANCE: cooperative and comfortable ORIENTATION/CONSCIOUSNESS: Yes awake, Yes oriented to person, Yes oriented to place and Yes oriented to time HENMT: COMMON NORMALS: normocephalic, atraumatic and hearing grossly normal bilaterally HEAD & SCALP: normocephalic and atraumatic Resp: COMMON NORMALS: normal respiratory effort, No retractions, No use of accessory muscles and clear to auscultation bilaterally AUSCULTATION: clear to auscultation bilaterally Cardio: COMMON NORMALS: regular rate, regular rhythm and No murmurs present (Cardio) RATE: regular rate RHYTHM: regular rhythm Extremity: OTHER: Slightly reddened area tender to the touch medial aspect of the left lower leg. No induration no lymphatic streaking consistent with superficial thrombophlebitis Neuro: SENSORIUM/ORIENTATION: Yes oriented to person, Yes oriented to place and Yes oriented to time Skin: COMMON NORMALS: no rashes or lesions noted GENERAL SKIN EXAM: no rashes or lesions noted Course Vital Signs: Vital signs: Vital Signs Temperature 98.2 F 07/30/22 15:28 Pulse Rate 79 07/30/22 15:28 Respiratory Rate 16 07/30/22 15:32 Blood Pressure 135/77 07/30/22 15:32 Pulse Oximetry 97 07/30/22 15:32 Oxygen Delivery Me thod 07/30/22 15:32 MDM - Skin/Abscess/Foreign Bdy Medicial Decision Making Superficial thrombophlebitis. Anti-inflammatories moist heat elevate follow-up with primary care if not improving Discharge Plan Discharge Patient Disposition: Home Clinical Impression: Superficial thrombophlebitis of left leg Condition: Stable Prescriptions: New diclofenac sodium 75 mg tablet,delayed release (DR/EC) 75 mg PO Q12H PRN (Reason: pain) Qty: 20 0RF No Action biotin 5,000 mcg tablet,disintegrating 10,000 mcg PO DAILY prenat.vits,lory,kmo-[id number]-lbchp Tablet 1 tab PO DAILY sulfamethoxazole-trimethoprim [Bactrim DS] 800-160 mg tablet 1 tab PO BID 5 Days Qty: 10 0RF Discharge Orders: Discharge ED (Routine); Ordered 07/30/22 Ordered By: Hugo Colon Referrals: Alba Casiano MD [Primary Care Provider] - Discharge Diet: Usual diet Discharge Activity: Increase activity as tolerated Patient Instructions: Superficial Thrombophlebitis (ED), Opioid Safety, Pain Management Activity Restrictions/Additional Instructions: You were seen today in the emergency room with superficial thrombophlebitis. Recommend you elevate leg is much as possible apply moist heat every few hours as you are able use diclofenac as needed follow-up with your primary care doctor if not improving. Coding Level of Care Code ED Cardroom Plastic Card Grader for Andrzej Chau
[2022-07-30 15:51] VITALS: BP 127/77; PULSE 75; RESP 16; O2SAT 98
== END 2022-07-30 15:48 | disposition home or self-care (01) ==
PROVIDERS: Emergency Provider Family Medicine; PCP Family Medicine
DX: I80.02 Phlebitis and thrombophlebitis of superficial vessels of left lower extremity (principal); Z85.3 Personal history of malignant neoplasm of breast; F17.210 Nicotine dependence, cigarettes, uncomplicated
CPT/HCPCS: 99283

== ENCOUNTER 2022-08-01 14:05 | Emergency (ER) | payer MEDICARE, SELFPAY ==
[2022-08-01 14:39] VITALS: BMI 30.5
[2022-08-01 14:42] VITALS: BP 111/72; PULSE 72; RESP 18; O2SAT 96
--- NOTE | 2022-08-01 15:09 | USCV_ITS ---
Phil Lorrie Age: 77 Gender: F : 1945 Exam Date: 08/01/2022 15:30 Ordering Phys: Hugo Colon DO Technologist: MARCIAL Exam Location: [facility] [place] Indication: left lower extremity pain FINDINGS: left GSV thrombus prox-dis CONCLUSIONS Left GSV thrombus above the knee extending distally to [place] and below the knee. LLE veins otherwise patent Preliminary findings to Dr Colon by Test Clerk at time of study Hernesto Evans MD (Electronically Signed) Final Date: 01 August 2022 18:07 S
--- NOTE | 2022-08-01 15:17 | W.ED.EXTPRO ---
HPI - Extremity Problem General: Chief complaint: Extremity Injury, Lower Stated complaint: leg tenderness Time Seen by Provider: 08/01/22 14:49 Source: patient Mode of arrival: ambulatory History of Present Illness: 77-year-old female was seen 2 days ago she had a superficial thrombophlebitis with a reddened tender firm varicose vein on the posterior medial calf region on the left leg. She is now complaining of some tenderness on the medial distal thigh. No leg edema or swelling negative Homans. She not had any chest pain or shortness of breath. MD Complaint: extremity pain Onset (ago): day(s) Pain Consistency: constant Location: left and lower extremity (Medial thigh) Quality: aching Radiation: none Relieving factors: nothing Exacerbating factors: nothing Associated symptoms: Deny arthralgias, chest pain, fever(s), myalgias, rash or short of breath Review of Systems Const: Denies: fever(s), chills, change in weight, fatigue or malaise ENMT: Denies: throat pain, ear or mastoid pain, nasal discharge or nasal congestion Card: Denies: chest pain, palpitations, irregular heart rhythm, edema or swelling of feet/ankles Resp: Denies: dyspnea, productive cough or non-productive cough GI: Denies: abdominal pain, nausea, vomiting, hematemesis, coffee ground emesis, diarrhea, constipation, bloating, hematochezia or melena : Denies: flank pain, difficulty voiding, dysuria, urinary frequency or urinary urgency Skin/Breast: Denies: rash PFSH ED PFSH: Medical History (Updated 08/01/22 @ 16:38 by Hugo Colon DO) History of breast cancer Social History Smoking and tobacco status: current every day smoker Alcohol intake: never Physical Exam Const: GENERAL APPEARANCE: cooperative and comfortable ORIENTATION/CONSCIOUSNESS: Yes awake, Yes oriented to person, Yes oriented to place and Yes oriented to time HENMT: COMMON NORMALS: normocephalic, atraumatic and hearing grossly normal bilaterally HEAD & SCALP: normocephalic and atraumatic Resp: COMMON NORMALS: normal respiratory effort, No retractions, No use of accessory muscles and clear to auscultation bilaterally AUSCULTATION: clear to auscultation bilaterally Cardio: COMMON NORMALS: regular rate, regular rhythm and No murmurs present (Cardio) RATE: regular rate RHYTHM: regular rhythm GI: COMMON NORMALS: Soft to palpation and No hepatosplenomegaly present AUSCULTATION: Yes normoactive bowel sounds PALPATION: Yes Soft to palpation, No Tenderness to palpation present (GI), No Guarding due to palpation present (GI) and Yes No hepatosplenomegaly present Extremity: COMMON NORMALS: normal to inspection, capillary refill normal, no clubbing, cyanosis or edema, no calf tenderness and no pedal edema Neuro: SENSORIUM/ORIENTATION: Yes oriented to person, Yes oriented to place and Yes oriented to time Skin: COMMON NORMALS: no rashes or lesions noted GENERAL SKIN EXAM: no rashes or lesions noted Course Vital Signs: Vital signs: Vital Signs Pulse Rate 72 08/01/22 14:42 Respiratory Rate 18 08/01/22 14:42 Blood Pressure 111/72 08/01/22 14:42 Pulse Oximetry 96 08/01/22 14:42 Oxygen Delivery Me thod 08/01/22 14:42 MDM - Extremity (Nontraumatic) Medical Decision Making Ultrasound venous duplex shows a thrombus in the saphenous vein extending all the way into the deep saphenous vein. We will start her on anticoagulation. She given Lovenox and started on Eliquis given a starter pack follow-up with primary care doctor to discuss how long she will need to be on it. She does have a history of breast cancer. Medical Records I reviewed the patient's medical records. Lab Data I reviewed the patient's lab results. Discharge Plan Discharge Patient Disposition: Home Clinical Impression: DVT (deep venous thrombosis) Condition: Stable Prescriptions: New Eliquis DVT-PE Treat 30D Start 5 mg (74 tabs) tablets,dose pack See Rx Instructions .ROUTE .COMPLEX Qty: 74 0RF Rx Instructions: orally per package directions No Action biotin 5,000 mcg tablet,disintegrating 10,000 mcg PO DAILY prenat.vits,lory,vkk-rgwa-pafza Tablet 1 tab PO DAILY aspirin 81 mg Capsule 81 mg PO DAILY diclofenac sodium 75 mg tablet,delayed release (DR/EC) 75 mg PO Q12H PRN (Reason: pain) Qty: 20 0RF Discharge Orders: Discharge ED (Routine); Ordered 08/01/22 Ordered By: Hugo Colon Referrals: Alba Casiano MD [Primary Care Provider] - Discharge Diet: Usual diet Discharge Activity: Increase activity as tolerated Patient Instructions: Opioid Safety, Pain Management Activity Restrictions/Additional Instructions: You were seen today for discomfort in the distal medial thigh. Venous duplex shows a DVT in the saphenous vein. Recommend you start anticoagulation you are given a shot of Lovenox in the emergency room and should start Eliquis follow package directions. Follow-up with your doctor within the next month to refill the Eliquis and discuss length of time needed to remain on the Eliquis. Coding Level of Care Code ED Mechanical Ordnance Assembler for Andrzej Chau
[2022-08-01] MEDS: enoxaparin 80 mg/0.8 mL Syringe SUBCUT (16:48)
[2022-08-01 17:01] VITALS: BP 119/78; PULSE 71; RESP 16; O2SAT 99
== END 2022-08-01 17:02 | disposition home or self-care (01) ==
PROVIDERS: Emergency Provider Family Medicine; PCP Family Medicine
DX: I82.4Y2 Acute embolism and thrombosis of unspecified deep veins of left proximal lower extremity (principal); F17.210 Nicotine dependence, cigarettes, uncomplicated; Z85.3 Personal history of malignant neoplasm of breast; Z79.82 Long term (current) use of aspirin
CPT/HCPCS: 93971; 96372; 99284; J1650

== ENCOUNTER → 2022-10-31 08:12 | Outpatient (BNVA) | payer MEDICARE, SELFPAY | PROVIDERS: PCP Family Medicine; Visit Provider Nurse Practitioner Family | DX: L98.499 Non-pressure chronic ulcer of skin of other sites with unspecified severity (principal); D17.22 Benign lipomatous neoplasm of skin and subcutaneous tissue of left arm; L57.0 Actinic keratosis; L81.4 Other melanin hyperpigmentation; D22.5 Melanocytic nevi of trunk; Z71.89 Other specified counseling; L85.3 Xerosis cutis; L57.8 Other skin changes due to chronic exposure to nonionizing radiation | CPT/HCPCS: 17000; 17003; 99203 ==

== ENCOUNTER → 2022-11-11 09:40 | Outpatient (BNVA) | payer MEDICARE, SELFPAY | PROVIDERS: PCP Family Medicine; Visit Provider Family Medicine | DX: Z00.00 Encounter for general adult medical examination without abnormal findings (principal); I80.02 Phlebitis and thrombophlebitis of superficial vessels of left lower extremity; Z85.3 Personal history of malignant neoplasm of breast | CPT/HCPCS: 80053; 85025 ==

== ENCOUNTER 2023-01-08 09:27 | Outpatient (CLI) | payer MEDICARE, SELFPAY ==
--- NOTE | 2023-01-08 09:45 | USCV_ITS ---
Lorrie Villarreal Age: 77 Gender: F : 1945 Exam Date: 01/08/2023 09:48 Ordering Phys: Alba Casiano MD Technologist: Maria Esther Fiore Exam Location: [facility] [place] Indication: f/u GSV thrombus left HISTORY: Left GSV thrombus in July 2022 with anticoagulation therapy. PROCEDURES: On the left side, the common femoral, superficial femoral, profunda femoral, popliteal, posterior tibial, greater saphenous veins, and the peroneal trunk were identified and interrogated in the standard fashion. The GSV was scanned from groin to ankle due to presence of thrombus on prior exam. FINDINGS: No evidence of DVT seen in any vessel visualized at this time. CONCLUSIONS No evidence of left lower extremity DVT. GSV is patent today Hernesto Evans MD (Electronically Signed) Final Date: 08 January 2023 12:19 S
== END 2023-01-08 09:28 | disposition home or self-care (01) ==
LOC: RAD 09:30
PROVIDERS: PCP Family Medicine; Visit Provider Family Medicine
DX: I82.812 Embolism and thrombosis of superficial veins of left lower extremity (principal)
CPT/HCPCS: 93971

== ENCOUNTER 2023-03-26 22:25 | Emergency (ER) | payer MEDICARE, SELFPAY ==
[2023-03-26 22:28] VITALS: BP 168/105; PULSE 89; RESP 22; TEMP 36.8; O2SAT 97
--- NOTE | 2023-03-26 22:31 | ECG_ITS ---
[facility] Test Date: 2023-03-26 Pat Name: Lorrie Villarreal Department: Room: Gender: Female Installation Manager: SUSANA: 1945 Requested By: Noah Elizabeth Order Number: [id number] Salena MD: Jabari Jaeger M.D. Measurements Intervals [place] Rate: 76 P: 23 [place]: 179 QRS: -26 QRSD: 94 T: 52 QT: 367 QTc: 413 Interpretive Statements SINUS RHYTHM LOW QRS VOLTAGE IN PRECORDIAL LEADS [QRS DEFLECTION < 1.0 mV IN CHEST LEADS] INCOMPLETE RIGHT BUNDLE BRANCH BLOCK [90+ ms QRS DURATION, TERMINAL R IN V1/V2, 40+ ms S IN I/aVL/V4/V5/V6] SEPTAL MYOCARDIAL INFARCTION , OF INDETERMINATE AGE [40+ ms Q WAVE IN V1/V2] No previous ECG available for comparison Electronically Signed On 03-26-2023 22:42:13 RECONDITIONING ASSOCIATE by Jabari Jaeger M.D. [id number]
--- NOTE | 2023-03-26 22:44 | XRR_ITS ---
PROCEDURE INFORMATION: Exam: XR Chest Exam date and time: 03/26/2023 10:59 PM Age: 78 years old Clinical indication: Dyspnea; Additional info: Shortness of breath TECHNIQUE: Imaging protocol: Radiologic exam of the chest. Views: 1 view. COMPARISON: CR XR chest 2V* [id number] 09/19/2019 1:51 PM FINDINGS: Lungs: Left lower lobe opacities pleural effusion. Findings may be seen with pneumonia. Pleural spaces: See Lungs finding. Heart/Mediastinum: No cardiomegaly. Bones/joints: No acute fracture. Soft tissues: There are left axillary clips. XR/XR chest 1V portable [id number] IMPRESSION: Left lower lobe opacities pleural effusion. Findings may be seen with pneumonia.
[2023-03-26 23:01] LABS: Basophils % 0.8 %; Eosinophils # 0.1 10^3/uL (0.0-0.8); Eosinophils % 3.3 %; Hematocrit 43.6 % (36-47); Lymphocytes # 1.4 10^3/uL (0.8-4.8); Lymphocytes % 35.4 %; Mean Corpuscular HGB Conc 32.6 g/dL (30-55); Mean Corpuscular Hemoglobin 28.7 pg (27-33); Mean Corpuscular Volume 88.3 fl (85-98); Mean Platelet Volume 9.7 fL (7.4-10.4); Monocytes # 0.9 10^3/uL (0.2-0.9); Monocytes % 21.7 %; Neutrophils # 1.53 10^3/uL (1.8-7.7); Neutrophils % 38.5 %; Nucleated Red Blood Cells % 0 %; Platelet Count 193 10^3/cmm (157-399); Red Blood Count 4.94 10^6/uL (3.85-5.65); Red Cell Distribution Width 13.6 % (12.1-15.1); White Blood Count 3.96 10^3/uL (3.29-11.43)
[2023-03-26 23:17] LABS: Alanine Aminotransferase 17 U/L (0-33); Albumin Level 3.7 g/dL (3.5-5.2); Alkaline Phosphatase 58 U/L (35-105); Anion Gap 15.7 (5-19); Aspartate Amino Transferase 24 U/L (0-32); Blood Urea Nitrogen 16 mg/dL (8-23); Calcium 9.9 mg/dL (8.5-10.5); Carbon Dioxide 25 mmol/L (22-29); Chloride 100 mmol/L (98-107); Globulin 2.8 g/dL (1.3-4.6); Glucose 109 mg/dL (65-115); Magnesium 2.1 mg/dL (1.7-2.3); Osmolality Calculated 286 mOsm/kg (285-295); Potassium 3.7 mmol/L (3.5-5.1); Sodium 137 mmol/L (136-145); Total Bilirubin 0.2 mg/dL (0.15-1.2); Total Protein 6.5 g/dL (6.6-8.7)
--- NOTE | 2023-03-26 23:38 | W.ED.SOB ---
HPI - SOB/Dyspnea General: Chief Complaint: Shortness of Breath/Dyspnea Stated Complaint: congestion, sob, tingling in bilateral arms Time Seen by Provider: 03/26/23 22:44 History of Present Illness: HPI Narrative: Who presents to the ER with complaints of lower back to last 3 days having cough congestion with low-grade fever and just not feeling well. Patient has tried taking Coricidin and Mucinex she does say that these seem to help and she has tenderness dry cough into a mildly productive cough. Patient seem to get more short of breath today and having a raspy voice. Patient's O2 saturation upon arrival was 97% on room air. Review of Systems General: Reports: 10 or more systems reviewed and unremarkable except in HPI and below PFSH ED PFSH: Medical History (Updated 03/27/23 @ 00:43 by Noah Elizabeth DO) History of breast cancer Social History Smoking and tobacco/nicotine status: current every day tobacco/nicotine user Alcohol intake: never Substance/Drug Use: never Physical Exam Const: COMMON NORMALS: no acute distress, average body habitus, patient oriented x3, no limitations, healthy appearing, alert and well nourished HENMT: COMMON NORMALS: normocephalic, atraumatic, hearing grossly normal bilaterally, external ears normal, Normal external nose present, moist oral mucous membranes and oropharynx normal HEAD & SCALP: normocephalic and atraumatic NOSE: Normal external nose present EXTERNAL EAR: Yes external ears normal Neck/C-Spine: COMMON NORMALS: full ROM, no lymphadenopathy, supple, no meningeal signs, no JVD and Thyroid normal THYROID: Thyroid normal Lymph: LYMPHATIC: no lymphadenopathy noted Chest: COMMONS NORMALS: normal inspection of the chest and normal palpation of entire chest wall Resp: COMMON NORMALS: normal respiratory effort, No retractions, No use of accessory muscles and clear to auscultation bilaterally AUSCULTATION: clear to auscultation bilaterally Cardio: COMMON NORMALS: no JVD, regular rate, regular rhythm, S1 normal heart sound present, S2 normal heart sound present, No gallops present (Cardio), No clicks present (Cardio), No murmurs present (Cardio) and No rub (Cardio) RATE: regular rate RHYTHM: regular rhythm HEART SOUNDS: S1 normal heart sound present and S2 normal heart sound present GI: COMMON NORMALS: Normal to inspection, nondistended, normoactive bowel sounds present, Soft to palpation, non-tender, No hepatosplenomegaly present and no masses PALPATION: Yes Soft to palpation and Yes No hepatosplenomegaly present Neuro: COMMON NORMALS: patient oriented x3 SENSORIUM/ORIENTATION: Yes alert MENINGEAL SIGNS: Yes no meningeal signs Course Vital Signs: Vital signs: Vital Signs Temperature 98.2 F 03/26/23 22:28 Pulse Rate 62 03/27/23 00:26 Respiratory Rate 16 03/27/23 00:26 Blood Pressure 113/66 03/27/23 00:26 Pulse Oximetry 96 03/27/23 00:26 Oxygen Delivery Me thod Room Air 03/26/23 22:28 MDM - SOB/Dyspnea Medical Decision Making Chest x-ray was read off preliminary by myself is negative, patient's white count was normal at 3.96 as well as the rest of her CBC and BMP. Patient did not have any wheezes or rhonchi during physical exam she had no fever. X-ray was read by the radiologist as possible pneumonia. Patient was given Bactrim DS and blood cultures were obtained in ER. Patient will be discharged home on a prescription for Bactrim DS since she is allergic to penicillins. Patient is to follow-up with her PCP in approximately 7 days. Differential Diagnosis Unlikely acute exacerbation of chronic obstructive airways disease, congestive heart failure, community acquired pneumonia, asthma with exacerbation or pulmonary embolism Medical Records I reviewed the patient's medical records. Lab Data I reviewed the patient's lab results. 03/26/23 22:50 03/26/23 22:50 Labs/Radiology: Radiology Impressions Chest X-Ray 03/26/23 22:44 IMPRESSION: Left lower lobe opacities pleural effusion. Findings may be seen with pneumonia. Laboratory Results WBC 3.96 10^3/uL (3.29-11.43) 03/26/23 22:50 RBC 4.94 10^6/uL (3.85-5.65) 03/26/23 22:50 Hgb 14.20 g/dL (11.27-16.99) 03/26/23 22:50 Hct 43.6 % (36-47) 03/26/23 22:50 MCV 88.3 fl (85-98) 03/26/23 22:50 MCH 28.7 pg (27-33) 03/26/23 22:50 MCHC 32.6 g/dL (30-55) 03/26/23 22:50 RDW 13.6 % (12.1-15.1) 03/26/23 22:50 Plt Count 193 10^3/cmm (157-399) 03/26/23 22:50 MPV 9.7 fL (7.4-10.4) 03/26/23 22:50 Neut % (Auto) 38.5 % 03/26/23 22:50 Lymph % (Auto) 35.4 % 03/26/23 22:50 [place] % (Auto) 21.7 % 03/26/23 22:50 Eos % (Auto) 3.3 % 03/26/23 22:50 Baso % (Auto) 0.8 % 03/26/23 22:50 Neut # (Auto) 1.53 10^3/uL (1.8-7.7) L 03/26/23 22:50 Lymph # (Auto) 1.4 10^3/uL (0.8-4.8) 03/26/23 22:50 [place] # (Auto) 0.9 10^3/uL (0.2-0.9) 03/26/23 22:50 Eos # (Auto) 0.1 10^3/uL (0.0-0.8) 03/26/23 22:50 Baso # (Auto) 0.0 10^3/uL (0.0-0.1) 03/26/23 22:50 Nucleated RBC % (auto) 0 % 03/26/23 22:50 Nucleated RBCs # 0.0 /100WBC 03/26/23 22:50 Sodium 137 mmol/L (136-145) 03/26/23 22:50 Potassium 3.7 mmol/L (3.5-5.1) 03/26/23 22:50 Chloride 100 mmol/L (98-107) 03/26/23 22:50 Carbon Dioxide 25 mmol/L (22-29) 03/26/23 22:50 Anion Gap 15.7 (5-19) 03/26/23 22:50 BUN 16 mg/dL (8-23) 03/26/23 22:50 Creatinine 0.8 mg/dL (0.5-0.9) 03/26/23 22:50 GFR Calculation Not Reportable 03/26/23 22:50 Glucose 109 mg/dL (65-115) 03/26/23 22:50 Calculated Osmolality 286 mOsm/kg (285-295) 03/26/23 22:50 Calcium 9.9 mg/dL (8.5-10.5) 03/26/23 22:50 Magnesium 2.1 mg/dL (1.7-2.3) 03/26/23 22:50 Total Bilirubin 0.2 mg/dL (0.15-1.2) 03/26/23 22:50 AST 24 U/L (0-32) 03/26/23 22:50 ALT 17 U/L (0-33) 03/26/23 22:50 Alkaline Phosphatase 58 U/L (35-105) 03/26/23 22:50 Total Protein 6.5 g/dL (6.6-8.7) L 03/26/23 22:50 Albumin 3.7 g/dL (3.5-5.2) 03/26/23 22:50 Globulin 2.8 g/dL (1.3-4.6) 03/26/23 22:50 All radiology interpretation(s) finalized by discharge EKG Data EKG 1: I personally reviewed and interpreted this EKG as follows: EKG Interpretation Date: 03/26/23 EKG interpretation time: 22:31 Prior EKG tracings: not available for review Interpretation: EKG shows ventricular rate 76 bpm, MO interval 179, QRS duration 94, QTc of 397, sinus rhythm, incomplete right bundle branch block, Discharge Plan Discharge Patient Disposition: Home Clinical Impression: Community acquired pneumonia Qualifiers: Laterality: left Lung location: lower lobe of lung Qualified Code(s): J18.9 - Pneumonia, unspecified organism Condition: Stable Prescriptions: New sulfamethoxazole-trimethoprim [Bactrim DS] 800-160 mg tablet 1 tab PO BID 7 Days Qty: 14 0RF No Action biotin 5,000 mcg tablet,disintegrating 10,000 mcg PO DAILY prenat.vits,lory,qsf-yrjx-gibrh Tablet 1 tab PO DAILY rivaroxaban 20 mg tablet 20 mg PO DAILY Qty: 30 5RF Rx Instructions: must administer with evening meal Discharge Orders: Discharge ED (Routine); Ordered 03/27/23 Ordered By: Noah Elizabeth Referrals: Alba Casiano MD [Primary Care Provider] - 1 week Patient Instructions: Pneumonia (ED) Activity Restrictions/Additional Instructions: Your lab work was normal however your chest x-ray showed you may have a mild case of the left lower lobe pneumonia. Please finish all your antibiotics as directed. Please follow-up with your family practice doctor in the next 7 to 10 days for further evaluation and treatment as needed. Coding Level of Care Code ED Ross Furnace Operator for Andrzej Chau
[2023-03-27 00:26] VITALS: BP 113/66; PULSE 62; RESP 16; O2SAT 96
[2023-03-27 01:08] VITALS: BP 111/67
== END 2023-03-27 01:09 | disposition home or self-care (01) ==
PROVIDERS: Emergency Provider Emergency Medicine; PCP Family Medicine
DX: J18.9 Pneumonia, unspecified organism (principal); Z85.3 Personal history of malignant neoplasm of breast; Z72.0 Tobacco use
CPT/HCPCS: 36415; 71045; 80053; 83735; 85025; 87040; 93005; 99285

== ENCOUNTER 2023-04-07 11:09 | Outpatient (CLI) | payer MEDICARE, SELFPAY ==
--- NOTE | 2023-04-07 11:16 | XRR_ITS ---
PROCEDURE INFORMATION: Exam: XR Chest Exam date and time: 04/07/2023 11:23 AM Age: 78 years old Clinical indication: Cough; Prior surgery; Surgery date: 6+ months; Surgery type: Mastectomy; Patient HX: HX of breast cancer; Additional info: Continued cough TECHNIQUE: Imaging protocol: Radiologic exam of the chest. Views: 2 views. COMPARISON: CR (CHEST, ) 03/26/2023 10:59 PM FINDINGS: Lungs: Unremarkable. No consolidation. Pleural spaces: Unremarkable. No pleural effusion. No pneumothorax. Heart/Mediastinum: Unremarkable. No cardiomegaly. Bones/joints: Unremarkable. Soft tissues: Prior left chest wall surgery. XR/XR chest 2V* [id number] IMPRESSION: No acute cardiopulmonary disease.
== END 2023-04-07 11:10 | disposition home or self-care (01) ==
PROVIDERS: PCP Family Medicine; Visit Provider Family Medicine
DX: J18.9 Pneumonia, unspecified organism (principal); R05.9 Cough, unspecified
CPT/HCPCS: 71046; 87400; 87426; 87635

== ENCOUNTER 2023-06-17 09:41 | Outpatient (CLI) | payer MEDICARE, SELFPAY ==
--- NOTE | 2023-06-17 09:44 | MM_ITS ---
WS: [id number] Right breast diagnostic 3D tomosynthesis digital mammogram, 06/17/2023 Clinical Data: Z85.3 - Personal history of malignant neoplasm of breast Comparison: 05/20/2022, 04/24/2021, 05/07/2020, 05/04/2019, 04/29/2018, 10/22/2017, 11/28/2016, 01/29/2016, 07/30/2015, 11/06/2014, 07/24/2005. Findings: The right breast shows fibroglandular tissue. There is a biopsy clip and small stable calcifications. There are no secondary signs of carcinoma. No spiculated masses nor clustered calcifications are see n. Impression: 1. Negative right breast mammogram unchanged. 2. Recommend annual right breast mammogram. MM/[place] [id number] BIRADS: 1-Negative FOLLOW UP: 1 Year Follow-up The CAD loom stop checker was used.
== END 2023-06-17 09:42 | disposition home or self-care (01) ==
LOC: RAD 09:42
PROVIDERS: PCP Family Medicine; Visit Provider Family Medicine
DX: Z85.3 Personal history of malignant neoplasm of breast (principal); R92.1 Mammographic calcification found on diagnostic imaging of breast
CPT/HCPCS: 77061; G0279

== ENCOUNTER → 2023-10-28 09:12 | Outpatient (BNVA) | payer MEDICARE, SELFPAY | PROVIDERS: PCP Family Medicine; Visit Provider Nurse Practitioner Family | DX: L57.0 Actinic keratosis (principal); D17.22 Benign lipomatous neoplasm of skin and subcutaneous tissue of left arm; L81.4 Other melanin hyperpigmentation; D22.5 Melanocytic nevi of trunk; L57.8 Other skin changes due to chronic exposure to nonionizing radiation | CPT/HCPCS: 17000; 99213 ==

== ENCOUNTER → 2024-06-20 12:11 | Outpatient (BNVA) | payer MEDICARE, SELFPAY | PROVIDERS: PCP Family Medicine; Visit Provider Family Medicine | DX: Z85.3 Personal history of malignant neoplasm of breast (principal); L82.1 Other seborrheic keratosis; Z00.00 Encounter for general adult medical examination without abnormal findings | CPT/HCPCS: 80053; 85025 ==

== ENCOUNTER 2024-07-11 12:16 | Outpatient (CLI) | payer MEDICARE, SELFPAY ==
--- NOTE | 2024-07-11 12:22 | MM_ITS ---
WS: [id number] RIGHT 3D TOMOSYNTHESIS DIGITAL MAMMOGRAPHY WITH CAD CLINICAL INFORMATION: HX OF BREAST CA COMPARISON: 2023 TECHNIQUE: 3 views of the right breast were obtained. FINDINGS: Scattered fibroglandular densities of the right breast. Stable coarse calcifications upper outer RIGHT breast. Biopsy clip. No suspicious focal mass, asymmetry, calcifications, or architectural distortion. No evidence of malignancy. MM/MM diag RT tomosynthesis [id number] IMPRESSION: DENSITY: There are scattered areas of fibroglandular density. BI-RADS: 2 - Benign. FOLLOW UP: 1 Year Follow-up Recommend return to annual diagnostic mammography.
== END 2024-07-11 12:17 | disposition home or self-care (01) ==
PROVIDERS: PCP Family Medicine; Visit Provider Family Medicine
DX: Z85.3 Personal history of malignant neoplasm of breast (principal); R92.321 Mammographic fibroglandular density, right breast; R92.1 Mammographic calcification found on diagnostic imaging of breast
CPT/HCPCS: 77061; G0279

== ENCOUNTER → 2024-11-01 13:31 | Outpatient (BNVA) | payer MEDICARE, SELFPAY | PROVIDERS: PCP Family Medicine; Visit Provider Dermatology | DX: D17.22 Benign lipomatous neoplasm of skin and subcutaneous tissue of left arm (principal); L81.4 Other melanin hyperpigmentation; L57.8 Other skin changes due to chronic exposure to nonionizing radiation; D22.5 Melanocytic nevi of trunk; L57.0 Actinic keratosis | CPT/HCPCS: 17000; 99213 ==

== ENCOUNTER 2025-04-16 13:02 | Outpatient (CLI) | payer MEDICARE, SELFPAY ==
--- NOTE | 2025-04-16 13:21 | XRR_ITS ---
PROCEDURE INFORMATION: Exam: XR Chest Exam date and time: 04/16/2025 1:22 PM Age: 80 years old Clinical indication: Pain; Left-sided; Prior surgery; Surgery date: 6+ months; Surgery type: Mastectomy; Additional info: Left chest pain with inspiration TECHNIQUE: Imaging protocol: Radiologic exam of the chest. Views: 2 views. COMPARISON: CR XR chest 2V* [id number] 04/07/2023 11:23 AM FINDINGS: Lungs: No active infiltrate or focal parenchymal abnormality. Pulmonary vascularity is normal. Pleural spaces: No pleural effusion. No pneumothorax. Heart/Mediastinum: Normal cardiomediastinal sillhouette. Bones/joints: There is degenerative spondylosis. XR/XR chest 2V* [id number] IMPRESSION: No acute cardiopulmonary abnormality.
== END 2025-04-16 13:03 | disposition home or self-care (01) ==
PROVIDERS: PCP Family Medicine; Visit Provider Emergency Medicine
DX: R07.81 Pleurodynia (principal); R07.9 Chest pain, unspecified; Z90.10 Acquired absence of unspecified breast and nipple; R93.7 Abnormal findings on diagnostic imaging of other parts of musculoskeletal system
CPT/HCPCS: 71046

== ENCOUNTER 2025-04-19 11:38 | Emergency (ER) | payer MEDICARE, SELFPAY ==
[2025-04-19] VITALS (53 sets, daily range): BP systolic 124–173; BP diastolic 93–108; PULSE 91–112; RESP 11–23; TEMP 36.6; O2SAT 80–100
--- NOTE | 2025-04-19 11:40 | ECG_ITS ---
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 Measurements Intervals [place] Rate: 100 P: 141 [place]: 196 QRS: -28 QRSD: 84 T: 0 QT: 333 QTc: 431 Interpretive Statements ECTOPIC ATRIAL TACHYCARDIA LEFT ATRIAL ENLARGEMENT [-0.15mV P-WAVE IN V1/V2] LOW QRS VOLTAGE IN PRECORDIAL LEADS [QRS DEFLECTION < 1.0 mV IN CHEST LEADS] POSSIBLE RIGHT VENTRICULAR CONDUCTION DELAY [RSR (QR) IN V1/V2] ANTEROSEPTAL MYOCARDIAL INFARCTION , OF INDETERMINATE AGE [40+ ms Q WAVE IN V1-V4] Compared to ECG 03/26/2023 22:31:39 Atrial abnormality now present Sinus rhythm no longer present Incomplete right bundle-branch block no longer present Myocardial infarct finding still present Electronically Signed On 04-19-2025 23:39:25 CAPACITOR ASSEMBLER by Nuvia Langford M.D. [email or web address]
--- NOTE | 2025-04-19 11:40 | XR_ITS ---
WS: [id number] Exam: XR chest 1V portable [id number] Date/Time of Exam: 04/19/2025 12:11 PM Reason For Exam: dyspnea/cough Comparison 04/16/2025. The lungs are fully inflated and clear. Normal cardiomediastinal silhouette. Bony structures are intact. Surgical clips along the LEFT axilla. Atherosclerotic plaquing of the thoracic aorta. XR/XR chest 1V portable [id number] IMPRESSION: 1. No acute cardiopulmonary finding.
--- NOTE | 2025-04-19 12:01 | W.ED.SOB ---
HPI - SOB/Dyspnea General: Chief Complaint: Shortness of Breath/Dyspnea Stated Complaint: SOB Time Seen by Provider: 04/19/25 11:59 History of Present Illness: HPI Narrative: 80-year-old female with a history of superficial thrombophlebitis, but who takes no chronic medications who presents emergency room with shortness of breath. Said she has been feeling more short of breath for the last couple weeks. Today it got worse and her daughter came home and her heart rate was in the 120s and her blood pressure was elevated. Daughter says her blood pressure is never elevated. She had some slight pain in her left shoulder. She is a bit hypertensive on presentation. Lungs are clear. She is slightly tachycardic. Related Data Home Medications ?Medication ?Instructions ?Recorded ?Confirmed prednisone 20 mg tablet 40 mg PO QPM 04/19/25 04/19/25 Allergies Allergy/AdvReac Type Severity Reaction Status Date / Time Penicillins Allergy rash Verified 04/19/25 11:58 Review of Systems Narrative: Constitutional symptoms: Negative except as documented in HPI. Skin symptoms: Negative except as documented in HPI. Eye symptoms: Negative except as documented in HPI. ENMT symptoms: Negative except as documented in HPI. Respiratory symptoms: Negative except as documented in HPI. Cardiovascular symptoms: Negative except as documented in HPI. Gastrointestinal symptoms: Negative except as documented in HPI. Genitourinary symptoms: Negative except as documented in HPI. Musculoskeletal symptoms: Negative except as documented in HPI. Neurologic symptoms: Negative except as documented in HPI. Psychiatric symptoms: Negative except as documented in HPI. Endocrine symptoms: Negative except as documented in HPI. [facility], [facility] ED PFSH: Medical History (Updated 04/19/25 @ 15:28 by Isela Adam MD) History of breast cancer Social History Smoking and tobacco/nicotine status: never used tobacco/nicotine Second hand smoke exposure: No Alcohol intake: never Substance/Drug Use: never Physical Exam Narrative: EXAM NARRATIVE: General: Alert, no acute distress. Skin: Warm, dry. Head: Normocephalic, atraumatic. Neck: Supple, trachea midline. Eye: Extraocular movements are intact. Ears, nose, mouth and throat: mucosa moist. Cardiovascular: Regular, tachycardic, normal peripheral perfusion. Respiratory: Lungs are clear to auscultation, respirations are non-labored, breath sounds are equal, Symmetrical chest wall expansion. Gastrointestinal: Soft, Nontender, Non distended Musculoskeletal: Normal ROM, no deformity. Neurological: Alert and oriented, No focal neurological deficit observed. Psychiatric: Cooperative, appropriate mood & affect. Course Vital Signs: Vital signs: Vital Signs Temperature 97.9 F 04/19/25 11:54 Pulse Rate 95 04/19/25 14:15 Respiratory Rate 23 H 04/19/25 14:15 Blood Pressure 144/104 04/19/25 15:35 Pulse Oximetry 98 04/19/25 15:35 Oxygen Delivery Me thod Room Air 04/19/25 11:58 MDM - SOB/Dyspnea Medical Decision Making Medical decision making Patient's reason for coming to the emergency room: Shortness of breath Social determinants: Patient lives at home. Fairly independent I reviewed the patient's medical record. Patient does has a history of breast cancer. She takes no chronic medications. She follows in family practice here. I reviewed the patient's current home meds Patient takes no chronic home medications Alternate historians: Daughter provides history as well Differential diagnosis for patient with shortness of breath includes but is not limited to and based on the above HPI, review of systems and physical exam: Pneumonia. Bronchitis. Asthma or COPD with acute exacerbation. Acute coronary syndrome / CO. Pulmonary embolism. Anxiety. Congestive heart failure. Viral infections including influenza and Covid-19. Atrial fibrillation. Anxiety. Pleural effusion. Pneumothorax. Orders placed to evaluate differential diagnosis based on the above differential, HPI and physical exam EKG: Time 1243. Rate 99. Normal sinus rhythm, nonspecific ST changes, no ectopy, normal [place] & QRS intervals, This was reviewed and interpreted by myself the ER physician at 1247 Chest x-ray: No acute process. No infiltrate. No pneumothorax. This was reviewed and interpreted by myself the emergency room physician. I also reviewed the radiology report. Lab Review: Laboratory results were reviewed and interpreted by myself the emergency room physician. Mild leukocytosis. No anemia. No renal failure. Flu COVID and RSV are negative. Initial troponin is elevated at 152. D-dimer is very elevated at greater than 20. CTA of chest with PE protocol: Extensive bilateral pulmonary emboli. Ropelike saddle embolus. Evidence of right heart strain. Additional evidence of right heart dysfunction with contrast reflux into the hepatic veins. Lungs are well aerated. Hiatal hernia. This was reviewed and interpreted by myself the emergency room physician. I also reviewed the radiology report. Assessment of risk: Level of risk: At this point this patient is a very high risk patient given the burden of clot that she has. Hospitalization considerations: Patient is being transferred to another hospital with a higher level of care Reexamination: Patient is requiring 2 L and with any movement she will drop down. Heart rate is improved slightly. Consultation: I spoke with Dr. Leon who recommends transfer to a facility that might can intervene. She has pretty significant right heart strain with an elevation in her troponin. Consultation: Spoke with transfer center at [facility]. They accept the patient to Dr. Alcazar ER to ER. There were no other free beds. This was reviewed and interpreted by myself the emergency room physician. I also reviewed the radiology report. Assessment and plan: Pulmonary embolism Right heart strain Hypoxemia Sinus tachycardia ?Patient is stable on 2 L nasal cannula ?Heparin drip has been initiated. With a bolus. - Discussed findings and plan with patient. Answered any questions. - All laboratory values were reviewed and interpreted personally by myself, the ER physician - All imaging was reviewed and interpreted personally by myself, the ER physician. - Evaluation and treatment of this problem were appropriate in the emergency setting Critical Care: -I spent a total of 66 minutes of critical care time managing the patient, independent of any other practitioner. -The time involved in the performance of separately reportable procedures was not counted towards critical care time. Lab Data 04/19/25 12:54 04/19/25 12:54 Labs/Radiology: Radiology Impressions Chest X-Ray 04/19/25 11:40 IMPRESSION: 1. No acute cardiopulmonary finding. Chest CTA 04/19/25 14:08 IMPRESSION: 1. Extensive bilateral pulmonary embolus with saddle embolus described above. 2. Evidence of RIGHT heart strain. Additional evidence of RIGHT heart dysfunction with contrast reflux into the hepatic veins 3. Lungs are well aerated. 4. Moderate to large esophageal hiatal hernia. Notified Isela Adam MD at 04/19/2025 2:50 PM. Laboratory Results WBC 11.45 10^3/uL (3.29-11.43) H 04/19/25 12:54 RBC 5.57 10^6/uL (3.85-5.65) 04/19/25 12:54 Hgb 16.30 g/dL (11.27-16.99) 04/19/25 12:54 Hct 49.3 % (36-47) H 04/19/25 12:54 MCV 88.5 fl (85-98) 04/19/25 12:54 MCH 29.3 pg (27-33) 04/19/25 12:54 MCHC 33.1 g/dL (30-55) 04/19/25 12:54 RDW 13.4 % (12.1-15.1) 04/19/25 12:54 Plt Count 206 10^3/cmm (157-399) 04/19/25 12:54 MPV 9.4 fL (7.4-10.4) 04/19/25 12:54 Neut % (Auto) 74.2 % 04/19/25 12:54 Lymph % (Auto) 15.2 % 04/19/25 12:54 [place] % (Auto) 9.7 % 04/19/25 12:54 Eos % (Auto) 0.2 % 04/19/25 12:54 Baso % (Auto) 0.3 % 04/19/25 12:54 Neut # (Auto) 8.50 10^3/uL (1.8-7.7) H 04/19/25 12:54 Lymph # (Auto) 1.7 10^3/uL (0.8-4.8) 04/19/25 12:54 [place] # (Auto) 1.1 10^3/uL (0.2-0.9) H 04/19/25 12:54 Eos # (Auto) 0.0 10^3/uL (0.0-0.8) 04/19/25 12:54 Baso # (Auto) 0.0 10^3/uL (0.0-0.1) 04/19/25 12:54 Nucleated RBC % (auto) 0 % 04/19/25 12:54 Nucleated RBCs # 0.0 /100WBC 04/19/25 12:54 D-Dimer >= 20.00 ug/mLFEU (0-0.59) H 04/19/25 12:54 Sodium 142 mmol/L (136-145) 04/19/25 12:54 Potassium 3.7 mmol/L (3.5-5.1) 04/19/25 12:54 Chloride 103 mmol/L (98-107) 04/19/25 12:54 Carbon Dioxide 26 mmol/L (22-29) 04/19/25 12:54 Anion Gap 16.7 (5-19) 04/19/25 12:54 BUN 17 mg/dL (8-23) 04/19/25 12:54 Creatinine 0.8 mg/dL (0.5-0.9) 04/19/25 12:54 GFR Calculation Not Reportable 04/19/25 12:54 Glucose 89 mg/dL (65-115) 04/19/25 12:54 Calculated Osmolality 295 mOsm/kg (285-295) 04/19/25 12:54 Calcium 9.7 mg/dL (8.5-10.5) 04/19/25 12:54 Magnesium 2.3 mg/dL (1.7-2.3) 04/19/25 12:54 Total Bilirubin 0.5 mg/dL (0.15-1.2) 04/19/25 12:54 AST 15 U/L (0-32) 04/19/25 12:54 ALT 9 U/L (0-33) 04/19/25 12:54 Alkaline Phosphatase 87 U/L (35-105) 04/19/25 12:54 Troponin T Baseline 152 ng/L (0-10) H* 04/19/25 12:54 Troponin T 120 Minute 168.4 ng/L (0-10) H 04/19/25 14:41 Delta Troponin T 16.4 ABS# (0-10) H* 04/19/25 14:41 NT-Pro-B Natriuret Pep 70 pg/mL (0-450) 04/19/25 12:54 Total Protein 7.3 g/dL (6.6-8.7) 04/19/25 12:54 Albumin 4.4 g/dL (3.5-5.2) 04/19/25 12:54 Globulin 2.9 g/dL (1.3-4.6) 04/19/25 12:54 TSH 1.09 uIU/mL (0.27-4.20) 04/19/25 12:54 Urine Color Yellow (Yellow) 04/19/25 13:41 Urine Appearance Clear (CLEAR) 04/19/25 13:41 Urine pH 7.0 (5-7) 04/19/25 13:41 Ur Specific [place] 1.005 (1.005-1.030) 04/19/25 13:41 Urine Protein Negative (Negative) 04/19/25 13:41 Urine Glucose (UA) Negative (Normal) 04/19/25 13:41 Urine Ketones Negative (Negative) 04/19/25 13:41 Urine Blood Trace (Negative) A 04/19/25 13:41 Urine Nitrate Negative (Negative) 04/19/25 13:41 Urine Bilirubin Negative (Negative) 04/19/25 13:41 Urine Urobilinogen 0.2 mg/dL (Negative) 04/19/25 13:41 Ur Leukocyte Esterase 1+ (Negative) A 04/19/25 13:41 Urine RBC 0-2 /hpf (0-2) 04/19/25 13:41 Urine WBC 6-10 /hpf (0-5) 04/19/25 13:41 Ur Squamous Epith Cells 0-5 /hpf (0-5) 04/19/25 13:41 Amorphous Sediment Not Reportable 04/19/25 13:41 Urine Bacteria None seen /hpf (NONE) 04/19/25 13:41 Hyaline Casts 0-4 /lpf H 04/19/25 13:41 Influenza A (PCR) Negative (Negative) 04/19/25 12:25 Influenza Type B (PCR) Negative (Negative) 04/19/25 12:25 RSV (PCR) Negative (Negative) 04/19/25 12:25 SARS-CoV-2 (PCR) Negative (Negative) 04/19/25 12:25 All radiology interpretation(s) finalized by discharge Discharge Plan Discharge Patient Disposition: Xfer Short-Term Hosp Clinical Impression: Acute saddle pulmonary embolism, Hypoxemia, Sinus tachycardia, Elevated troponin Condition: Stable Referrals: Alba Casiano MD [Primary Care Provider, [facility]] Print Language: Hungarian Coding Level of Care Code ED Weight And Balance Control Agent for Andrzej Chau
--- NOTE | 2025-04-19 12:03 | ECG_ITS ---
[facility] Date: 2025-04-19 Pat Name: Lorrie Villarreal Department: Room: Gender: Female Clinical Biochemist: SUSANA: 1945 Requested By: Isela Camacho Order Number: [id number] Salena MD: Nuvia Langford M.D. Measurements Intervals [place] Rate: 102 P: 51 RI: 239 QRS: -36 QRSD: 69 T: 20 QT: 300 QTc: 392 Interpretive Statements SINUS TACHYCARDIA WITH FIRST DEGREE AV BLOCK POSSIBLE LEFT ATRIAL ENLARGEMENT [-0.1mV P-WAVE IN V1/V2] POSSIBLE RIGHT VENTRICULAR CONDUCTION DELAY [RSR (QR) IN V1/V2] INFERIOR MYOCARDIAL INFARCTION , PROBABLY OLD [40+ ms Q WAVE AND/OR ST/T ABNORMALITY IN II/aVF] ANTEROSEPTAL MYOCARDIAL INFARCTION , OF INDETERMINATE AGE [40+ ms Q WAVE IN V1-V4] Compared to ECG 04/19/2025 12:01:35 First degree AV block now present Myocardial infarct finding still present Electronically Signed On 04-19-2025 23:50:06 ORGANIZATION DEVELOPMENT CONSULTANT by Nuvia Langford M.D. [email or web address]
--- NOTE | 2025-04-19 12:21 | ECG_ITS ---
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 Measurements Intervals [place] Rate: 99 P: 18 AR: 196 QRS: -32 QRSD: 85 T: 17 QT: 335 QTc: 431 Interpretive Statements SINUS RHYTHM POSSIBLE LEFT ATRIAL ENLARGEMENT [-0.1mV P-WAVE IN V1/V2] LEFT AXIS DEVIATION [QRS AXIS < -30] SEPTAL MYOCARDIAL INFARCTION , OF INDETERMINATE AGE [40+ ms Q WAVE IN V1/V2] Compared to ECG 04/19/2025 12:03:57 Left-axis deviation now present Sinus tachycardia no longer present First degree AV block no longer present Myocardial infarct finding still present Electronically Signed On 04-19-2025 23:39:08 TUMBLER PLATER by Nuvia Langford M.D. [email or web address]
[2025-04-19 13:12] LABS: Hematocrit 49.3 % (36-47); Hemoglobin 16.30 g/dL (11.27-16.99); Mean Corpuscular HGB Conc 33.1 g/dL (30-55); Mean Corpuscular Hemoglobin 29.3 pg (27-33); Mean Corpuscular Volume 88.5 fl (85-98); Nucleated Red Blood Cells % 0 %; Platelet Count 206 10^3/cmm (157-399); Red Blood Count 5.57 10^6/uL (3.85-5.65); White Blood Count 11.45 10^3/uL (3.29-11.43)
[2025-04-19 13:13] LABS: Respiratory Syncytial Virus Ce NEGATIVE (Negative); SARS-CoV-2 PCR NEGATIVE (Negative)
[2025-04-19 13:47] LABS: Alanine Aminotransferase 9 U/L (0-33); Albumin Level 4.4 g/dL (3.5-5.2); Alkaline Phosphatase 87 U/L (35-105); Anion Gap 16.7 (5-19); Aspartate Amino Transferase 15 U/L (0-32); Blood Urea Nitrogen 17 mg/dL (8-23); Calcium 9.7 mg/dL (8.5-10.5); Carbon Dioxide 26 mmol/L (22-29); Chloride 103 mmol/L (98-107); Globulin 2.9 g/dL (1.3-4.6); Glucose 89 mg/dL (65-115); Magnesium 2.3 mg/dL (1.7-2.3); NT Pro B Type Natriuretic Pept 70 pg/mL (0-450); Osmolality Calculated 295 mOsm/kg (285-295); Potassium 3.7 mmol/L (3.5-5.1); Sodium 142 mmol/L (136-145); Thyroid Stimulating Hormone 1.09 uIU/mL (0.27-4.20); Total Protein 7.3 g/dL (6.6-8.7)
[2025-04-19 14:00] LABS: Glucose Urine UA Negative (Normal); Nitrate Urine Negative (Negative); Specific Gravity, Urine 1.005 (1.005-1.030)
[2025-04-19 14:06] LABS: Troponin(5th) Baseline 152 ng/L (0-10)
--- NOTE | 2025-04-19 14:08 | CT_ITS ---
WS: [id number] CTA OF THE CHEST WITH PULMONARY EMBOLISM PROTOCOL TECHNIQUE: High-resolution contrast enhanced CTA of the chest with coronal and sagittal reformatted images with pulmonary embolism protocol. MIP images are also reviewed. CLINICAL INFORMATION: hypoxemia, tachycardia COMPARISON: None. DLP: 370.[address] scans at [facility] use at least one of these dose optimization techniques: automated exposure control; mA and/or kV adjustment per patient size (includes targeted exams where dose is matched to clinical indication); or iterative reconstruction. FINDINGS: Thin saddle embolus extending to the RIGHT and LEFT main pulmonary arteries. Extensive RIGHT greater than LEFT pulmonary embolus extending into the segmental and subsegmental pulmonary arteries bilaterally. Findings compatible with acute extensive pulmonary embolus. Evidence of RIGHT heart strain. No acute appearing pulmonary infarcts. Slight subsegmental atelectasis RIGHT lower lobe. Lungs are otherwise well aerated. Moderate to large esophageal hiatal hernia. Few small hepatic cysts. Cholelithiasis. Contrast reflux into the hepatic veins compatible with RIGHT heart dysfunction. Adrenal glands are normal. Surgical clips LEFT axilla. LEFT breast prosthesis. Moderate thoracic kyphosis. Hypertrophic changes thoracic spine. CT/CT angio chest PE protcl [id number] IMPRESSION: 1. Extensive bilateral pulmonary embolus with saddle embolus described above. 2. Evidence of RIGHT heart strain. Additional evidence of RIGHT heart dysfunct ion with contrast reflux into the hepatic veins 3. Lungs are well aerated. 4. Moderate to large esophageal hiatal hernia. Notified Isela Adam MD at 04/19/2025 2:50 PM.
--- NOTE | 2025-04-19 14:21 | ECG_ITS ---
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 Measurements Intervals [place] Rate: 106 P: 13 DC: 192 QRS: -38 QRSD: 85 T: 21 QT: 311 QTc: 415 Interpretive Statements SINUS TACHYCARDIA POSSIBLE LEFT ATRIAL ENLARGEMENT [-0.1mV P-WAVE IN V1/V2] LEFT AXIS DEVIATION [QRS AXIS < -30] ANTEROSEPTAL MYOCARDIAL INFARCTION , OF INDETERMINATE AGE [40+ ms Q WAVE IN V1-V4] Compared to ECG 04/19/2025 12:43:03 Sinus rhythm no longer present Myocardial infarct finding still present Electronically Signed On 04-19-2025 23:43:48 HEELER by Nuvia Langford M.D. [email or web address]
[2025-04-19] MEDS: iohexol 350 mg/mL 500 mL Btl (per mL) IV (14:25)
--- NOTE | 2025-04-19 14:47 | PC.NURSE ---
PT WEIGHT CHANGED TO 152 LB, 69.09 KG PER STANDING TRIAGE SCALE.
[2025-04-19 15:06] LABS: Troponin 5 2HR 168.4 ng/L (0-10); Troponin 5 2HR Delta 16.4 ABS# (0-10)
[2025-04-19] MEDS: heparin drip 25,000 UNIT/500 ML PREMIX 16.54 UNIT IV (15:13)
[2025-04-19] MEDS: heparin 5,000 unit/mL INJ 1 mL IVP (15:34)
== END 2025-04-19 16:41 | disposition short-term general hospital (02) ==
PROVIDERS: Family Medicine; Emergency Provider Emergency Medicine; PCP Family Medicine
DX: I26.92 Saddle embolus of pulmonary artery without acute cor pulmonale (principal); R09.02 Hypoxemia; R00.0 Tachycardia, unspecified; R79.89 Other specified abnormal findings of blood chemistry; Z11.52 Encounter for screening for COVID-19
CPT/HCPCS: 36415; 71045; 71275; 80053; 81001; 83735; 83880; 84443; 84484; 85025; 85378; 87040; 87637; 93005; 96374; 96375; 99285; J1644; J3490